=== PATIENT | male | born 2000 | race Caucasian/White ===

== ENCOUNTER 2019-09-09 11:32 | Emergency (ER) | payer OTHER ==
[~2019-09-09] VITALS: Ht 180.3 cm; Wt 92.6 kg
[2019-09-09 12:09] VITALS: BP 135/76; TEMP 101.5
[2019-09-09 14:35] VITALS: PULSE 87
== END 2019-09-09 14:35 | disposition home or self-care (01) ==
LOC: COL.ER 11:32
DX: L02.01 Cutaneous abscess of face (principal)
CPT/HCPCS: J1885; J7030